=== PATIENT | male | born 1950 | race Caucasian/White ===

== ENCOUNTER → 2017-08-14 | Outpatient (CLI) | payer OTHER | END | disposition home or self-care (01) | LOC: GMAJ 10:28 | PROVIDERS: ATTEND Family Medicine | DX: R21 Rash and other nonspecific skin eruption (principal) ==

== ENCOUNTER → 2017-12-16 | Outpatient (CLI) | payer OTHER | LOC: GMAJ 13:19 | PROVIDERS: ATTEND Family Medicine | DX: Z12.5 Encounter for screening for malignant neoplasm of prostate (principal) ==

== ENCOUNTER → 2018-07-06 | Outpatient (CLI) | payer OTHER ==
--- NOTE | 2018-07-07 10:44 | US ---
EXAM: Abdomen,Complete CLINICAL HISTORY: ABNORMAL LIVER FUNCTION STUDY COMPARISON STUDY: None FINDINGS: Ultrasound evaluation of the abdomen demonstrates diffuse increased echogenicity of the liver suggesting fatty infiltration. There is no focal mass lesion seen. No gallstones or signs of cholecystitis. The common bile duct is less than 5 mm. Both kidneys are of normal size and appearance except for a small simple renal cyst on the left that measures 12 mm. There is no free fluid. The aorta and inferior vena cava (IVC) are negative. The spleen and pancreas are negative. IMPRESSION: FATTY INFILTRATION OF THE LIVER, OTHERWISE, NEGATIVE ABDOMEN ULTRASOUND. Electronically signed by: James Diaz MD 07/07/2018 10:43 AM CDT
== END ==
LOC: US 10:00
PROVIDERS: ATTEND Family Medicine
DX: R94.5 Abnormal results of liver function studies (principal); K76.0 Fatty (change of) liver, not elsewhere classified

== ENCOUNTER → 2019-10-11 | Outpatient (CLI) | payer OTHER | LOC: GMAJ 10:42 | PROVIDERS: ATTEND Family Medicine | DX: Z12.5 Encounter for screening for malignant neoplasm of prostate (principal); I10 Essential (primary) hypertension; E78.2 Mixed hyperlipidemia ==

== ENCOUNTER → 2020-08-20 | Outpatient (CLI) | payer OTHER | LOC: GMAJ 10:12 | PROVIDERS: ATTEND Family Medicine | DX: M10.00 Idiopathic gout, unspecified site (principal); E78.2 Mixed hyperlipidemia; I10 Essential (primary) hypertension ==